=== PATIENT | male | born 1975 | race Caucasian/White ===

== ENCOUNTER 2021-06-18 09:43 | Emergency (ER) | payer MEDICARE, OTHER ==
[~2021-06-18 09:43] MED LIST: BUSPAR 10MG10 MG PO; FEOSOL325 MG PO; GABAPENTIN300 MG PO; IBUPROFEN800 MG PO; LOVENOX SY40 MG/0.4 SQ; NORCO 7.5-3251 EACH PO; ZANTAC150 MG PO
[2021-06-18] MEDS ORDERED: IBUPROFEN600 MG PO (10:52)
== END 2021-06-18 11:45 | disposition home or self-care (01) ==
LOC: ER1 09:43
DX: M25.562 Pain in left knee (principal)
CPT/HCPCS: 73562; 99283